=== PATIENT | male | born 2000 | race African-American/Black ===

== ENCOUNTER 2019-11-14 16:55 | Emergency (ER) | payer MEDICAID ==
[~2019-11-14] VITALS: Ht 177.8 cm; Wt 69.0 kg
[2019-11-14 17:05] VITALS: BP 96/57
[2019-11-14] MEDS ORDERED: HYDROCODONE/ACETAMINOPHEN 5/325MG TABLET PO ONE (17:45)
[2019-11-14] MEDS ORDERED: IBUPROFEN 600MG TABLET PO ONE (17:45)
== END 2019-11-14 18:59 | disposition home or self-care (01) ==
LOC: ER 16:55
DX: G89.18 Other acute postprocedural pain (principal); M79.662 Pain in left lower leg; Z98.890 Other specified postprocedural states
CPT/HCPCS: 99283